=== PATIENT | female | born 1955 | race African-American/Black ===

== ENCOUNTER 2022-01-15 22:01 | Emergency (ER) | payer OTHER ==
[~2022-01-15] VITALS: Ht 170.2 cm; Wt 54.0 kg
[2022-01-15 22:02] VITALS: BP 136/78
--- NOTE | 2022-01-15 22:02 | NUR ---
BIBA TAKEN TO BED #11
--- NOTE | 2022-01-15 22:15 | NUR ---
Patient being evaluated by physician at bedside.
[2022-01-15 22:43] LABS: BASOPHILS % (AUTO) 0.6 % (0.0-2.0); EOSINOPHILS # (AUTO) 0.1 K/uL (0-0.4); EOSINOPHILS % (AUTO) 2.2 % (0.0-4.0); HEMATOCRIT 36.4 % (36-48); HEMOGLOBIN 12.1 g/dL (12.0-16.0); LYMPHOCYTES % (AUTO) 51.4 % (20.5-51.1); MEAN CORPUSCULAR HEMOGLOBIN 28 pg (27-31); MEAN CORPUSCULAR HGB CONC 33 g/dL (33-37); MEAN CORPUSCULAR VOLUME 85.9 fL (80-94); MONOCYTES # (AUTO) 0.3 K/uL (0.8-1.0); MONOCYTES % (AUTO) 8.2 % (1.7-9.3); NEUTROPHILS # (AUTO) 1.4 K/uL (1.8-7.7); NEUTROPHILS % (AUTO) 37.6 % (42.2-75.2); PLATELET COUNT (AUTO) 233 K/uL (140-450); RED BLOOD CELL COUNT(AUTO) 4.24 MIL/uL (4.20-5.40); RED CELL DISTRIBUTION WIDTH 15.3 % (11.6-13.7); WHITE BLOOD COUNT (AUTO) 3.8 K/uL (4.8-10.8)
--- NOTE | 2022-01-15 23:08 | NUR ---
pt is alert and oriented x 4, seems lethargic and vital sign is normal. pt is resting.
[2022-01-15 23:10] LABS: ALBUMIN 3.2 g/dL (3.4-5.0); ANION GAP 8.4 (8-16); ASPARTATE AMINOTRANSFERASE 20 U/L (15-37); CARBON DIOXIDE 27.7 mmol/L (21-32); CHLORIDE 101 mmol/L (98-107); CREATININE 0.7 mg/dL (0.6-1.3); FREE T4 (FREE THYROXINE) 0.72 ng/dL (0.76-1.46); GFR ARICAN-AMERICAN 107 mL/min (>90); GLUCOSE 88 mg/dL (74-106); POTASSIUM 4.1 mmol/L (3.5-5.1); SODIUM SERUM 133 mmol/L (136-145); THYROID STIMULATING HORMONE 0.58 uIU/mL (0.34-3.74); TOTAL BILIRUBIN 0.1 mg/dL (0.0-1.0); UREA NITROGEN, BLOOD 11 mg/dL (7-18)
[2022-01-16 01:48] LABS: APPEARANCE,URINE CLEAR (CLEAR); BILIRUBIN,URINE NEGATIVE (NEGATIVE); BLOOD, URINE NEGATIVE (NEGATIVE); COLOR,URINE YELLOW (YELLOW); LEUKOCYTE ESTERASE ,URINE 1+ (NEGATIVE); NITRITE, URINE NEGATIVE (NEGATIVE); UGLUCOSE NEGATIVE (NEGATIVE)
[2022-01-16 01:56] LABS: RBC,URINE 0-5 /HPF (0-5)
[2022-01-16] MEDS ORDERED: CEPH-588 PO (02:04)
[2022-01-16 02:49] VITALS: BP 123/73
--- NOTE | 2022-01-16 02:52 | NUR ---
Patient discharged with v/s stable. Written and verbal after care instructions given and explained. Patient alert, oriented and verbalized understanding of instructions. Ambulatory with steady gait. All questions addressed prior to discharge. ID band removed. Patient advised to follow up with PMD. Rx of antibotic given. Patient educated on indication of medication including possible reaction and side effects. Opportunity to ask questions provided and answered. Pt at the lobby at the momentand waiting for [facility].
== END 2022-01-16 02:52 | disposition home or self-care (01) ==
LOC: MED 22:01
DX: N30.00 Acute cystitis without hematuria (principal); E03.9 Hypothyroidism, unspecified; R53.1 Weakness; I10 Essential (primary) hypertension; I25.10 Atherosclerotic heart disease of native coronary artery without angina pectoris; J44.9 Chronic obstructive pulmonary disease, unspecified
CPT/HCPCS: 36415; 71045; 80053; 81001; 84439; 84443; 84484; 85025; 87086; 93005; 99285; Q0092; 81002